=== PATIENT | male | born 1990 | race Caucasian/White ===

== ENCOUNTER 2024-06-25 17:18 | Emergency (ER) | payer BC, SELFPAY ==
[2024-06-25 17:18] VITALS: BP 151/89; PULSE 111; RESP 18; TEMP 37.9; O2SAT 98; BMI 28.8
--- NOTE | 2024-06-25 17:43 | EDS_ITS ---
HPI <ASTRID Bailey - Last Filed: 06/25/24 20:16> History of Present Illness Chief Complaint: General Illness Narrative Narrative: Patient presenting with flulike symptoms that started yesterday. He reports fevers, chills, body aches, nasal congestion, sore throat, and a cough. [facility] and [facility] negative for COVID/influenza. He did report feeling dehydrated and that he had not urinated since yesterday evening. Because of this[facility] advised him to come in for evaluation. He reports that he is healthy otherwise. He denies abdominal pain, nausea, and vomiting. PFSH <ASTRID Bailey - Last Filed: 06/25/24 20:16> PFSH Medical History no medical history Allergy/AdvReac Type Severity Reaction Status Date / Time No Known Allergies Allergy Verified 06/25/24 17:18 Family History no significant family his Surgical History no surgical history Social History Smoking Status: Never smoker ROS <ASTRID Bailey - Last Filed: 06/25/24 20:16> ROS ED Constitutional Constitutional ED: Reports chills, fever(s) and sweats ENT ENT ED: Reports rhinorrhea and sore throat Cardiovascular Cardiovascular: Denies chest pain Respiratory/Chest Respiratory/Chest: Reports cough; Denies dyspnea Gastrointestinal Gastrointestinal: Denies abdominal pain, diarrhea, nausea or vomiting Genitourinary Genitourinary ED: Denies dysuria or hematuria Musculoskeletal Musculoskeletal: Reports other Details: Body aches Integumentary Denies rash Neurologic Neurologic: Denies weakness EXAM <ASTRID Bailey - Last Filed: 06/25/24 20:16> Physical Exam Const Vital Signs: 06/25/24 17:18 06/25/24 17:59 06/25/24 19:38 Temperature 100.2 F H Temperature Source Oral Pulse Rate 111 H 96 Respiratory Rate 18 18 Respiratory Effort Normal Respiratory Pattern Normal Blood Pressure 151/89 H 125/66 H Blood Pressure Mean 109 85 Pulse Ox 98 92 Oxygen Delivery Method Room Air Room Air 06/25/24 19:47 06/25/24 19:51 Temperature 100.2 F H 100.4 F H Temperature Source Oral Pulse Rate 96 Respiratory Rate 18 Respiratory Effort Respiratory Pattern Blood Pressure 125/66 H Blood Pressure Mean 85 Pulse Ox 92 Oxygen Delivery Method Positive well nourished, well developed and no apparent distress General Appearance ED: well developed HEENT Reports normocephalic, head/scalp atraumatic and TM's clear HEENT Narrative: Posterior pharynx clear, no tonsillar exudate, uvula midline Tympanic Membrane ED: Yes TM's clear bilateral Mouth ED: Yes moist mucous membranes normal Eyes PERRL and EOMs intact bilaterally Neck full ROM and supple Chest Wall inspection of chest normal Resp normal respiratory effort and clear to auscultation bilaterally Cardio regular rate and regular rhythm GI soft to palpation, non-tender, non-distended and no masses Back/Spine normal ROM and normal to inspection Extremity normal to inspection and full ROM Neuro oriented x3, moves all extremities, no focal motor deficits and no sensory deficits noted Sensorium / Orientation: awake and alert Psych mental status grossly normal and thought process normal Skin no rashes or lesions noted and no wounds <Dr. Germán Aguayo DO - Last Filed: 06/25/24 20:27> Physical Exam Const Vital Signs: 06/25/24 17:18 06/25/24 17:59 06/25/24 19:38 Temperature 100.2 F H Temperature Source Oral Pulse Rate 111 H 96 Respiratory Rate 18 18 Respiratory Effort Normal Respiratory Pattern Normal Blood Pressure 151/89 H 125/66 H Blood Pressure Mean 109 85 Pulse Ox 98 92 Oxygen Delivery Method Room Air Room Air 06/25/24 19:47 06/25/24 19:51 Temperature 100.2 F H 100.4 F H Temperature Source Oral Pulse Rate 96 Respiratory Rate 18 Respiratory Effort Respiratory Pattern Blood Pressure 125/66 H Blood Pressure Mean 85 Pulse Ox 92 Oxygen Delivery Method [facility] [place] <ASTRID Bailey - Last Filed: 06/25/24 20:16> [facility] Narrative Medical decision making narrative: Patient presenting today with flulike symptoms that started yesterday. [facility], they did do a swab for COVID and flu that was negative. He reported feeling dehydrated and that he had not urinated since yesterday evening, because of this he was sent here for evaluation. He is nontoxic- appearing, he does appear ill. He originally is mildly tachycardic and has a temperature of 100.2 ?F. He was given IV fluids and Toradol, he was able to urinate and UA is negative for UTI. Basic labs obtained, his CBC is unremarkable. He has a sodium of 132, creatinine mildly elevated at 1.22. COVID/influenza/RSV swab obtained and is positive for influenza A. Chest x-ray negative for infiltrate. He does report improvement of his symptoms on reexamination. His tachycardia has improved. He is tolerating p.o. fluids. He was additionally given Tylenol. I recommended he have his creatinine rechecked by his PCP. Encouraged him to push fluids, supportive care measures discussed. He can alternate Tylenol and ibuprofen as needed for fevers. Patient discharged home in stable condition. Lab Data Attestation: I reviewed the patient's lab results. Labs: Laboratory Results - last 24 hr 06/25/24 06/25/24 17:52 18:55 WBC 6.8 RBC 4.57 L Hgb 13.5 Hct 40.0 MCV 87.5 MCH 29.5 MCHC 33.8 RDW Std Deviation 40.3 RDW Coeff of Archana 12.7 Plt Count 189 MPV 9.0 Immature Gran % (Auto) 0.600 Neut % (Auto) 88.9 H Lymph % (Auto) 2.9 L Gray % (Auto) 7.2 Eos % (Auto) 0.0 Baso % (Auto) 0.4 Absolute Neuts (auto) 6.1 Absolute Lymphs (auto) 0.20 L Nucleated RBC % 0 Sodium 132 L Potassium 3.5 Chloride 98 Carbon Dioxide 22.3 Anion Gap 11 BUN 9 Creatinine 1.22 H Estim Creat Clear Calc 107.75 Est GFR (MDRD) Non-Af 79 BUN/Creatinine Ratio 7.7 L Glucose 155 H Calcium 8.5 Urine Color Yellow Urine Clarity Clear Urine pH 6.5 Ur Specific [place] 1.010 Urine Protein 30 H Urine Glucose (UA) Normal Urine Ketones 50 H Urine Occult Blood Negative Urine Nitrite Negative Urine Bilirubin Negative Urine Urobilinogen Normal Ur Leukocyte Esterase 25 H Urine RBC 0 SEEN Urine WBC 0-5 SEEN Ur Squamous Epith Cells 0-5 SEEN Urine Bacteria 0 SEEN Urine Mucus 0 SEEN Radiography X-Ray: Read by ED Physician Diagnostic Testing: Clinical Impression(s) from Imaging Studies Chest X-Ray 06/25/24 18:15 IMPRESSION: NO ACUTE FINDINGS. Reading Location: [place] <Dr. Germán Aguayo, DO - Last Filed: 06/25/24 20:27> [facility] [place] History & Record Review Discussion w/independent historian: Patient and Significant other Lab Data Labs: Laboratory Results - last 24 hr 06/25/24 06/25/24 17:52 18:55 WBC 6.8 RBC 4.57 L Hgb 13.5 Hct 40.0 MCV 87.5 MCH 29.5 MCHC 33.8 RDW Std Deviation 40.3 RDW Coeff of Archana 12.7 Plt Count 189 MPV 9.0 Immature Gran % (Auto) 0.600 Neut % (Auto) 88.9 H Lymph % (Auto) 2.9 L Gray % (Auto) 7.2 Eos % (Auto) 0.0 Baso % (Auto) 0.4 Absolute Neuts (auto) 6.1 Absolute Lymphs (auto) 0.20 L Nucleated RBC % 0 Sodium 132 L Potassium 3.5 Chloride 98 Carbon Dioxide 22.3 Anion Gap 11 BUN 9 Creatinine 1.22 H Estim Creat Clear Calc 107.75 Est GFR (MDRD) Non-Af 79 BUN/Creatinine Ratio 7.7 L Glucose 155 H Calcium 8.5 Urine Color Yellow Urine Clarity Clear Urine pH 6.5 Ur Specific [place] 1.010 Urine Protein 30 H Urine Glucose (UA) Normal Urine Ketones 50 H Urine Occult Blood Negative Urine Nitrite Negative Urine Bilirubin Negative Urine Urobilinogen Normal Ur Leukocyte Esterase 25 H Urine RBC 0 SEEN Urine WBC 0-5 SEEN Ur Squamous Epith Cells 0-5 SEEN Urine Bacteria 0 SEEN Urine Mucus 0 SEEN Radiography Diagnostic Testing: Clinical Impression(s) from Imaging Studies Chest X-Ray 06/25/24 18:15 IMPRESSION: NO ACUTE FINDINGS. Reading [facility] Treatment and Re-Evaluation :: I have personally performed a face to face assessment of the patient and have reviewed the [facility]AY[facility] Note. I performed a substantive portion of the visit including all aspects of the following. My miller findings include: History is 34-year-old male stating that since yesterday has had bodyaches headache cough and has not urinated since yesterday. He notes fever up to 103 with sweats. No vomiting no diarrhea. Cough is nonproductive. Mild nasal congestion Exam is patient noted to be slightly tachycardic. Lung sounds are clear and equal. No evidence of tonsillitis or retropharyngeal peritonsillar abscess. No meningeal signs Medical Decison Making patient is influenza A positive. My independent interpretation of the chest x-ray is no acute infiltrate. Radiology concurs. He received IV fluids. He was able to produce a urine. He received Toradol and later Tylenol. Would recommend continued supportive care at home as he is an otherwise healthy individual. Discharge Plan Triage Chief Complaint: General Illness ED Midlevel Provider: Griselda Jacob ED Provider: Germán Aguayo Dx/Rx/DC Orders Clinical Impression: Influenza A, Dehydration Instructions: Dehydration, ED Influenza (Adult) Primary Care Provider: Care Physician,No Primary Referrals: Kelley Guo DO [Med Staff - Active Staff] - 1 Week Care Physician,No Primary [Primary Care Provider] - Activity Restrictions/Additional Instructions: Follow-up with your PCP. Stay well hydrated. Print Language: Albanian Disposition Disposition: Home, Self Care Discharge Date/Time: 06/25/24 20:02
[2024-06-25] MEDS: Ketorolac 15 MG/ML Vial IV (17:52)
[2024-06-25] MEDS: 0.9% Normal Saline (1000mL) 1,000 ML 999 ML IV (17:52)
[2024-06-25 18:02] LABS: Absolute Neutrophil Count 6.1 X10^3/uL (2.0-7.7); Basophil# 0.03 X10^3/uL; Basophil% 0.4 % (0-1); Hemoglobin 13.5 g/dL (13.0-16.5); Lymphocyte % 2.9 % (19-41); Mean Corp Hgb Conc 33.8 g/dL (32-36); Mean Corpuscular Hgb 29.5 pg (27.0-32.0); Mean Corpuscular Volume 87.5 fL (80-94); Monocyte# 0.49 X10^3/uL; Monocyte% 7.2 % (0-10); NRBC Flagged by Analyzer 0 % (0-5); Neutrophil # 6.07 X10^3/uL (2.7-7.7); Neutrophil % 88.9 % (47-70); POSITIVE DIFFERENTIAL YES; Platelet Count 189 K/mm3 (150-450); RBC Distribution Width CV 12.7 % (11.6-14.6); RBC Distribution Width SD 40.3 fl (35.1-43.9); Red Blood Count 4.57 M/mm3 (4.6-6.2); White Blood Count 6.8 K/mm3 (4.4-11.0)
--- NOTE | 2024-06-25 18:15 | RAD_ITS ---
PROCEDURE: CHEST PA AND LATERAL 06/25/2024 REASON FOR EXAM: COUGH TECHNIQUE: Frontal and lateral views of the chest. COMPARISON: None. FINDINGS: Cardiomediastinal silhouette is within normal limits. No focal consolidation. No pneumothorax. No pleural effusion. No acute osseous abnormality. RAD/Chest PA and Lateral IMPRESSION: NO ACUTE FINDINGS. Reading [facility]
[2024-06-25 18:24] LABS: Anion Gap 11 (5-15); BUN 9 mg/dL (4-19); BUN/Creat Ratio 7.7 RATIO (10-20); Calcium,Total 8.5 mg/dL (7.6-11.0); Carbon Dioxide 22.3 mmol/L (21.0-32.0); Chloride 98 mmol/L (98-108); Creatinine, Serum 1.22 mg/dL (0.70-1.20); EST Glomerular Filtration Rate 79 (>60); Estimated Creatinine Clearance 107.75 ml/min (50-250); Glucose 155 mg/dL (70-99); Potassium 3.5 mmol/L (3.3-5.1); Sodium Level 132 mmol/L (133-145)
[2024-06-25 19:03] LABS: Bacteria 0 SEEN /hpf (None Seen); Mucous, Urine 0 SEEN /hpf (<or=2+)
[2024-06-25 19:05] LABS: Color, Urine Yellow (Yellow); Glucose, Dipstick Normal (Normal); Ketone-Dipstick 50 mg/dl (Negative); Leukocyte Esterase-Dipstick 25 /ul (Negative); Nitrite-Dipstick Negative (Negative); Occult Blood-Urine Negative /ul (Negative); Protein-Dipstick 30 mg/dl (Negative); Urine Bilirubin Dipstick Negative (Negative); Urine Clarity Clear (Clear); Urine Urobilinogen Normal (Normal); Urine pH 6.5 (5.0 - 8.0)
[2024-06-25 19:23] LABS: Red Blood Cells-Urine 0 SEEN /hpf (0-5); Squamous Epithelial Cells - UA 0-5 SEEN /hpf (0-5); White Blood Cells 0-5 SEEN /hpf (0-5)
[2024-06-25 19:38] VITALS: BP 125/66; PULSE 96; RESP 18; O2SAT 92
[2024-06-25 19:47] VITALS: BP 125/66; PULSE 96; RESP 18; TEMP 37.9; O2SAT 92
[2024-06-25 19:51] VITALS: TEMP 38
[2024-06-25] MEDS: Acetaminophen 325 MG Tablet 650 MG PO (20:01)
== END 2024-06-25 20:02 | disposition home or self-care (01) ==
PROVIDERS: Physician Assistant; Emergency Provider Emergency Medicine; Visit Provider Emergency Medicine
DX: J10.1 Influenza due to other identified influenza virus with other respiratory manifestations (principal); E86.0 Dehydration
CPT/HCPCS: 71046; 80048; 81001; 85025; 87631; 96361; 96374; 96376; 99283; A4216